=== PATIENT | female | born 1950 | race Caucasian/White ===

== ENCOUNTER 2016-11-21 11:32 | Emergency (ER) | payer OTHER, MEDICAID ==
[~2016-11-21] VITALS: Ht 160 cm; Wt 65.8 kg
[2016-11-21 11:35] VITALS: BP 108/48; PULSE 104; RESP 19; TEMP 97.1; O2SAT 98
--- NOTE | 2016-11-21 11:40 | NUR ---
Patient triaged and placed in waiting room. VSS and patient appears in no acute distress at this time. Accompanied by DAUGHTER, awaiting available bed, and MD notified of need for MSE.
--- NOTE | 2016-11-21 12:35 | NUR ---
GIDEON BACK TO BED #3 AND REPORT GIVEN TO BEBA.
--- NOTE | 2016-11-21 13:13 | NUR ---
Dr. Cloon at bedside for evaluation
--- NOTE | 2016-11-21 13:15 | NUR ---
Pt c/o intermittent fever x4 days. Taking tylenol and percocet for fever. Pt of [facility], tried to go to their ER, but it is at capacity. Pt denies abd pain except at LLQ where she has stent placed. Colostomy in placed. Denies chest pain, denies shortness of breath, denies n/v/d
[2016-11-21 13:50] LABS: BASOPHILS % (AUTO) 0.4 % (0.0-2.0); EOSINOPHILS # (AUTO) 0.1 K/uL (0.0-0.4); EOSINOPHILS % (AUTO) 2.1 % (0.0-4.0); HEMATOCRIT 39.5 % (36-48); HEMOGLOBIN 13.2 g/dL (12.0-16.0); LYMPHOCYTES # (AUTO) 1.7 K/uL (1.0-5.5); LYMPHOCYTES % (AUTO) 47.6 % (20.5-51.5); MEAN CORPUSCULAR HEMOGLOBIN 31 pg (27-31); MEAN CORPUSCULAR HGB CONC 33 % (32-36); MEAN CORPUSCULAR VOLUME 93 fL (79.0-98.0); MONOCYTES # (AUTO) 0.2 K/uL (0.0-1.0); MONOCYTES % (AUTO) 6.8 % (1.7-9.3); NEUTROPHILS # (AUTO) 1.5 K/uL (1.8-7.7); NEUTROPHILS % (AUTO) 43.1 % (40.0-70.0); PLATELET COUNT (AUTO) 137 K/uL (130-430); RED BLOOD CELL COUNT(AUTO) 4.23 MIL/uL (4.2-6.2); RED CELL DISTRIBUTION WIDTH 16.3 % (9.0-15.0); WHITE BLOOD COUNT (AUTO) 3.5 K/uL (4.8-10.8)
[2016-11-21 14:06] LABS: CREATININE 1.03 mg/dL (0.55-1.30); POTASSIUM 4.4 mmol/L (3.5-5.1)
[2016-11-21 14:08] LABS: PROTHROMBIN TIME 10.8 SECS (9.5-12.5)
[2016-11-21 14:12] LABS: ALBUMIN 3.2 g/dL (3.4-4.8); TOTAL BILIRUBIN 0.5 mg/dL (0.0-1.0); TOTAL PROTEIN, SERUM 7.5 g/dL (6.4-8.3)
[2016-11-21 14:22] LABS: BILIRUBIN,URINE NEGATIVE (NEGATIVE); BLOOD, URINE NEGATIVE (NEGATIVE); CLARITY/URINE CLEAR (CLEAR); COLOR,URINE YELLOW (YELLOW); GLUCOSE,URINE NEGATIVE (NEGATIVE); KETONES,URINE NEGATIVE (NEGATIVE); LEUKOCYTE ESTERASE ,URINE 2+ (NEGATIVE); NITRITE, URINE NEGATIVE (NEGATIVE); PH,URINE 5.5 (5.0-8.0); PROTEIN URINE TRACE (NEGATIVE); UROBILINOGEN,URINE 0.2 (0.2-1.0)
[2016-11-21 14:43] LABS: RBC,URINE 0-3 /HPF (0-3)
[2016-11-21 14:44] LABS: BACTERIA,URINE MANY /HPF (None Seen); MUCUS,URINE None Seen /LPF (None Seen)
--- NOTE | 2016-11-21 15:00 | NUR ---
No needs verbalized at this time. Daughter at bedside.
[2016-11-21] MEDS ORDERED: cefTRIAXone 1 GM VIAL IM ONE (15:45)
[2016-11-21] MEDS ORDERED: LIDOCAINE 1%, 20 ML MDV 20 ML ONE (15:45)
[2016-11-21 16:15] VITALS: BP 122/72; PULSE 88; RESP 20; TEMP 98; O2SAT 100
--- NOTE | 2016-11-21 16:15 | NUR ---
Patient given written and verbal discharge instructions and verbalizes understanding. ER MD discussed with patient the results and treatment provided. Given copies of tests performed in ER. Patient in stable condition. ID arm band removed. Rx of Macrobid and Motrin given. Patient educated on pain management and to follow up with PMD. Pain Scale 2/10, tolerable. Opportunity for questions provided and answered.
== END 2016-11-21 16:15 | disposition home or self-care (01) ==
LOC: SED 11:32
DX: N39.0 Urinary tract infection, site not specified (principal); C18.9 Malignant neoplasm of colon, unspecified; C78.00 Secondary malignant neoplasm of unspecified lung; Z88.2 Allergy status to sulfonamides
CPT/HCPCS: 36415; 71010; 80053; 81000; 82550; 83605; 85025; 85610; 85730; 87040; 96372; 99285; J0696; J2001